=== PATIENT | female | born 1950 | race Caucasian/White ===

== ENCOUNTER → 2017-02-23 | Outpatient (CLI) | payer OTHER ==
--- NOTE | 2017-02-23 15:01 | RADIOLOGY REPORT (SQ) ---
EXAM DESCRIPTION: MRI LT LOWER JOINT WITHOUT COMPLETED DATE/TIME: 02/23/2017 12:00 pm REASON FOR STUDY: PAIN IN LEFT HIP (M25.552) M25.552 PAIN IN LEFT HIP R10.2 PELVIC AND PERINEAL PA IN COMPARISON: None. TECHNIQUE: Lefth[employer] images acquired and stored on PACS. Multiplanar images to include fat sensitive s equences as T1, fluid sensitive sequences as T2/STIR and gradient echo sequences. Large FOV fat and f luid sensitive sequences include pelvis and opposite hip. LIMITATIONS: None. FINDINGS: BONE CORTEX AND MARROW: No generalized marrow replacement. No occult fracture. No worriso me bone lesions. TARGETED HIP: FEMORAL HEAD: No evidence of AVN. Small osteophytes. ACETABULUM: Mid small osteophytes. Mild subchondral cyst formation right acetabulum. No effusion. LABRUM: Degenerative changes. No obvious acute labral tear. TROCHANTER: No trochanteric bursal effusion. No edema/fluid at the insertions of the gluteus medius and gluteus minimus. OPPOSITE HIP: Limited evaluation. No worrisome bone lesions. No significant effusion. PELVIS, LOWER LUMBAR SPINE, SACROILIAC JOINTS: PELVIS : No insufficiency/stress fractures. No significant degenerative changes. Sacroiliac joints normal. L SPINE: Mild spondylosis. MUSCLES AND SOFT TISSUES: Adductors and piriformis normal. Abductors and greater trochanteric bursa n ormal without edema or fluid. Iliopsoas bursa without fluid. Hamstring attachments without edema or t ear. PELVIC SOFT TISSUES: No masses or adenopathy. SCIATIC NERVE: Identified, without masses or abnormal signal. OTHER: No other significant finding. IMPRESSION: Mild degenerative changes. No acute findings. TECHNICAL DOCUMENTATION: JOB ID: [id number] [employer]- All Rights Reserved
--- NOTE | 2017-02-23 15:18 | RADIOLOGY REPORT (SQ) ---
EXAM DESCRIPTION: MRI PELVIS COMBO COMPLETED DATE/TIME: 02/23/2017 12:01 pm REASON FOR STUDY: PELVIC AND PERINEAL PAIN (R10.2) M25.552 PAIN IN LEFT HIP R10.2 PELVIC AND PERIN EAL PAIN COMPARISON: None. TECHNIQUE: Multiplanar multisequence imaging performed without and with contrast including axial, sa gittal and coronal T2, axial T, axial gradient fat sat T1, axial, sagittal and coronal fat sat T2 pos t contrast. CONTRAST TYPE AND DOSE: 10 mL Prohance. RENAL FUNCTION: GFR > 60. LIMITATIONS: Motion. FINDINGS: BLADDER AND URETHRA: No focal bladder wall thickening or nodularity. Smooth mucosa. The urethra has smooth contour with no focal asymmetry. No abnormal enhancement. No focal lesions. PELVIC SOFT TISSUES: Normal. No masses. UTERUS: Normal size. No masses. Junctional zone normal. RIGHT OVARY: Normal size. No masses. LEFT OVARY: Normal size. No masses. FREE FLUID: None. PELVIC SKELETAL STRUCTURES: Healed fracture left inferior pubic ramus. EXTRA PELVIS SOFT TISSUES: No masses. OTHER: No other significant finding. IMPRESSION: No acute findings. TECHNICAL DOCUMENTATION: JOB ID: [id number] [employer]- All Rights Reserved
== END ==
LOC: RAD 10:20
PROVIDERS: ATTEND Internal Medicine
DX: M25.552 Pain in left hip (principal); R10.2 Pelvic and perineal pain
CPT/HCPCS: 82565; 73721; 72197; A9576

== ENCOUNTER → 2018-12-03 | Outpatient (CLI) | payer MEDICARE, OTHER ==
--- NOTE | 2018-12-03 12:59 | RADIOLOGY REPORT (SQ) ---
EXAM DESCRIPTION: MRI LUMBAR SPINE WITHOUT COMPLETED DATE/TIME: 12/03/2018 11:49 am REASON FOR STUDY: LESION OF SCIATIC NERVE AND OTHER INTERV G57.01 LESION OF SCIATIC NERVE, RIGHT LO WER LIMB M51.36 OTHER INTERVERTEBRAL DISC DEGENERATION, LUMBAR REGION COMPARISON: CT angio chest 08/29/2014 MRI lumbar spine 07/28/2014 TECHNIQUE: Sagittal and Axial imaging includes T1, T2, STIR and gradient echo sequences. Coronal T2/ HASTE imaging. LIMITATIONS: None. FINDINGS: VISUALIZED UPPER ABDOMEN: There is a spontaneous left splenorenal shunt with multiple veno us collaterals in the left retroperitoneum. This unchanged from CT chest 08/29/2014 and lumbar spine M RI 07/28/2014 SEGMENTATION: No transitional anatomy. The lowest well-developed disc space is labeled L5-S1. ALIGNMENT: Very mild anterolisthesis of L4 over L5 VERTEBRAE: Intact. BONE MARROW: Normal. No marrow replacement or reactive changes. DISC SIGNAL: Diffuse decreased T2 weighted intervertebral disc signal POSTERIOR ELEMENTS: Generally intact. No pars defect evident. HARDWARE: None in the spine. CORD AND CONUS: Normal in size and signal intensity. Conus at the L1 level. SOFT TISSUES: No aortic aneurysm seen. No bulky retroperitoneal adenopathy or mass. No paraspinal mas s or fluid. T12-L1: At the upper edge of the field of view. No central or foraminal stenosis. L1-L2: Mild bilateral facet hypertrophy. No central or foraminal stenosis. L2-L3: Minimal posterior disc bulging, moderate bilateral facet hypertrophy. No significant central or foraminal stenosis. L3-L4: Minimal posterior disc bulging, moderate bilateral facet and ligament hypertrophy. No signifi cant central or foraminal stenosis L4-L5: Grade 1 anterolisthesis of L4 over L5 is present, related to bilateral facet arthropathy. The re is mild diffuse posterior disc bulging. Borderline central canal narrowing with flattening of the thecal sac into a triangular shape best shown on axial T2 image 25. Mild bilateral inferior foramin al narrowing without exit L4 nerve root impingement. L5-S1: Mild posterior disc bulging is present with a superimposed left paracentral disc herniation. This flattens the thecal sac near the takeoff of the left S1 nerve root in the lateral recess, best s hown on axial T2 image 31, axial T1 weighted images 19 and 20, and sagittal images 8-11. Please note that the left L5 nerve root exits above this disc protrusion/ herniation through a mildly narrowed n eural foramen from facet and uncovertebral hypertrophy. No central stenosis or significant right foraminal narrowing. SACRUM: Visualized upper sacrum intact. OTHER: No other significant findings. IMPRESSION: Left paracentral disc herniation at the L5-S1 level, with extruded material flattening t he thecal sac near the takeoff of the left proximal S1 nerve root from the thecal sac TECHNICAL DOCUMENTATION: JOB ID: [id number] [employer]- All Rights Reserved Reading location - IP/workstation name: [email or web address]
== END ==
LOC: RAD 10:55
PROVIDERS: ATTEND Orthopaedic Surgery
DX: G57.01 Lesion of sciatic nerve, right lower limb (principal); M51.36 Other intervertebral disc degeneration, lumbar region
CPT/HCPCS: 72148

== ENCOUNTER 2019-11-28 10:31 | Emergency (ER) | payer MEDICARE, OTHER ==
[2019-11-28] MEDS ORDERED: AMOXICILLIN TR/POT CLAVULANATE 875-125 MG TAB PO ONE (10:46)
[2019-11-28] MEDS ORDERED: DIPH/PERTUSS(ACELL)/TETANUS VAC/PF 0.5 ML SYR (>=10YO) IM ONE (10:46)
--- NOTE | 2019-11-28 10:47 | ER Document Report ---
ED Medical Screen (RME) - General Chief Complaint: Animal Bite Stated Complaint: ANIMAL BITE Time Seen by Provider: 11/28/19 10:43 Primary Care Provider: JILL ALEXANDER MD [Primary Care Provider] - Follow up as needed Mode of Arrival: Ambulatory Information source: Patient Notes: 69-year-old female presents to ED for complaint of raccoon bite to her right thumb. She states it was about 10 AM. 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 She went to get the raccoon out and it was not that and it bit her. She states she is not sure if her tetanus shot so she will be getting a tetanus immunization she will be getting Augmentin and her finger cleaned. States animal control met her at the hospital and picked up the raccoon after her's shot it. She states she is vapes does not smoke cigarettes she rarely drinks and does not use any illicit drugs. I have greeted and performed a rapid initial assessment of this patient. A comprehensive ED assessment and evaluation of the patient, analysis of test results and completion of medical decision making process will be conducted by an additional ED providers. TRAVEL OUTSIDE OF THE [place] IN LAST 30 DAYS: No - Related Data Allergies/Adverse Reactions: No Known Allergies Allergy (Verified 08/29/14 20:42) Past Medical History Pulmonary Medical History: Denies: Hx Tuberculosis GI Medical History: Reports: Hx Gastroesophageal Reflux Disease Psychiatric Medical History: Reports: Hx Depression Traumatic Medical History: Reports: Hx Fractures - Pelvic Past Surgical History: Denies: Hx Pacemaker - Immunizations Hx Diphtheria, Pertussis, Tetanus Vaccination: Yes Physical Exam - Vital signs Vitals: Temp Pulse Resp BP Pulse Ox 98.5 F 83 18 145/73 H 100 11/28/19 10:36 11/28/19 10:36 11/28/19 10:36 11/28/19 10:36 11/28/19 10:36 Course - Vital Signs Vital signs: Temp Pulse Resp BP Pulse Ox 98.5 F 83 18 145/73 H 100 11/28/19 10:36 11/28/19 10:36 11/28/19 10:36 11/28/19 10:36 11/28/19 10:36 Doctor's Discharge - Discharge Referrals: JILL ALEXANDER MD [Primary Care Provider] - Follow up as needed
--- NOTE | 2019-11-28 11:01 | ER Document Report ---
ED Animal Bite - General Chief Complaint: Animal Bite Stated Complaint: ANIMAL BITE Time Seen by Provider: 11/28/19 10:43 Primary Care Provider: JILL ALEXANDER MD [ASSOCIATE] - Follow up as needed Mode of Arrival: Ambulatory Notes: CHIEF COMPLAINT: Raccoon bite right thumb HPI: 69-year-old female presenting for evaluation of her raccoon bite to the right thumb. Patient states her had trapped it and she thought it was and went to move it and it was not and it bit her. States her did shoot it and animal control did come out and take possession of the raccoon for testing for rabies. Patient did sustain a laceration to the thumb and is presenting for evaluation of same. States she did clean and irrigated at home ROS: See HPI - all other systems were reviewed and are otherwise negative Constitutional: no fever Integumentary: + Laceration Allergy: no hives Musculoskeletal: + extremity pain or swelling Neurological: no numbness/tingling, no weakness MEDICATIONS: I agree with the patient medications as charted by the RN. ALLERGIES: I agree with the allergies as charted by the RN. PAST MEDICAL HISTORY/PAST SURGICAL HISTORY: Reviewed and agree as charted by RN. SOCIAL HISTORY: Reviewed and agree as charted by RN. FAMILY HISTORY: No significant familial comorbid conditions directly related to patient complaint EXAM: Reviewed vital signs as charted by RN. CONSTITUTIONAL: Alert and oriented and responds appropriately to questions. Well-appearing; well-nourished mild distress secondary to discomfort HEAD: Normocephalic; atraumatic EYES: PERRL; Conjunctivae clear, sclerae non-icteric ENT: normal nose; no rhinorrhea; moist mucous membranes NECK: Supple without meningismus CARD: symmetric distal pulses RESP: Normal chest excursion without splinting or tachypnea ABD/GI: non-distended BACK: The back appears normal EXT: Normal ROM in all joints; no cyanosis, no effusions, no edema. There is a 1 cm laceration vertically across the proximal phalange of the right thumb. No visible tendon injury, laceration is proximal to the DIP joint space region. Patient is able to fully flex and extend the thumb without difficulty at the DIP joint space region SKIN: Normal color for age and race; warm; dry; good turgor NEURO: Moves all extremities equally; Motor and sensory function intact PSYCH: The patient's mood and manner are appropriate. Grooming and personal hygiene are appropriate. MDM: 69-year-old female with a raccoon bite to the right thumb, 1 cm laceration to the thumb. Full flexion extension and intact sensation. Will have nursing copiously irrigate the wound area and dress the wound area will not close given the infection risk and this was discussed with the patient. We will make sure she has referral to orthopedics for follow-up for wound check. [facility] already has the raccoon patient has 10 days to hear back from [facility] about whether she will need rabies vaccinations and she is aware of this TRAVEL OUTSIDE OF THE [place] IN LAST 30 DAYS: No - Related Data Allergies/Adverse Reactions: No Known Allergies Allergy (Verified 08/29/14 20:42) Past Medical History - General Information source: Patient - Social History Smoking Status: Never Smoker Chew tobacco use (# tins/day): No Frequency of alcohol use: Occasional Family History: Reviewed & Not Pertinent Patient has homicidal ideation: No Pulmonary Medical History: Denies: Hx Tuberculosis GI Medical History: Reports: Hx Gastroesophageal Reflux Disease Psychiatric Medical History: Reports: Hx Depression Traumatic Medical History: Reports: Hx Fractures - Pelvic Past Surgical History: Denies: Hx Pacemaker - Immunizations Hx Diphtheria, Pertussis, Tetanus Vaccination: Yes Physical Exam - Vital signs Vitals: Temp Pulse Resp BP Pulse Ox 98.5 F 83 18 145/73 H 100 11/28/19 10:36 11/28/19 10:36 11/28/19 10:36 11/28/19 10:36 11/28/19 10:36 Course - Re-evaluation Re-evalutation: 11/28/19 11:36 X-ray does not show evidence of foreign body or fracture. Will discharge home with return instructions - Vital Signs Vital signs: Temp Pulse Resp BP Pulse Ox 98.5 F 83 18 145/73 H 100 11/28/19 10:44 11/28/19 10:36 11/28/19 10:36 11/28/19 10:36 11/28/19 10:36 Discharge - Discharge Clinical Impression: Animal bite of finger Qualifiers: Encounter type: initial encounter Qualified Code(s): S61.259A - Open bite of unspecified finger without damage to nail, initial encounter Laceration of thumb, right, complicated Qualifiers: Encounter type: initial encounter Qualified Code(s): S61.011A - Laceration without foreign body of right thumb without damage to nail, initial encounter Condition: Stable Disposition: HOME, SELF-CARE Additional Instructions: Clean the wound area twice daily applying a small amount of antibiotic ointment until healed. Take the antibiotics as prescribed. Follow-up with orthopedics for wound check in 2 to 3 days call for appointment. Return for any significant swelling or redness to the thumb. Follow-up with animal control regarding the rabies status of the animal which will dictate whether you need to come back in for the immunoglobulin and rabies vaccination Prescriptions: Amoxicillin/Potassium Clav [Augmentin 875-125 Tablet] 1 tab PO NOW #14 tablet Referrals: JILL ALEXANDER MD [ASSOCIATE] - Follow up as needed
--- NOTE | 2019-11-28 11:28 | RADIOLOGY REPORT (SQ) ---
EXAM DESCRIPTION: FINGER RIGHT IMAGES COMPLETED DATE/TIME: 11/28/2019 11:17 am REASON FOR STUDY: right thumb racoon bite COMPARISON: None. NUMBER OF VIEWS: Three views. TECHNIQUE: AP, lateral, and oblique images acquired of the right thumb. LIMITATIONS: None. FINDINGS: MINERALIZATION: Normal. BONES: No acute fracture or dislocation. SOFT TISSUES: No soft tissue swelling or radiopaque foreign body. OTHER: Osteoarthrosis of several IP joints. IMPRESSION: No acute osseous abnormality or radiopaque foreign body. COMMENT: SITE OF TRAUMA/COMPLAINT MARKED/STAMP COMPLETED: YES. TECHNICAL DOCUMENTATION: JOB ID: [id number] 2010 [employer]- All Rights Reserved Reading location - IP/workstation name: [email or web address]
[2019-11-28 12:48] VITALS: BP 129/70
== END 2019-11-28 12:07 | disposition home or self-care (01) ==
LOC: ER 10:31
DX: S61.051A Open bite of right thumb without damage to nail, initial encounter (principal); S61.011A Laceration without foreign body of right thumb without damage to nail, initial encounter; W55.51XA Bitten by raccoon, initial encounter; Z23 Encounter for immunization
CPT/HCPCS: 99283; 90471; 73140; 90715; J3490

== ENCOUNTER 2020-07-27 12:06 | Emergency (ER) | payer MEDICARE, OTHER ==
[2020-07-27] MEDS ORDERED: ONDANSETRON HCL INJ/PF 4 MG/2 ML SDV IV ONE (13:08)
--- NOTE | 2020-07-27 13:11 | ER Document Report ---
ED Medical Screen (RME) - General Chief Complaint: Fever Stated Complaint: FEVER,CHILLS, BODYACHES Time Seen by Provider: 07/27/20 13:07 Primary Care Provider: RADHA ANDRADE MD [Primary Care Provider] - Follow up as needed Notes: Patient presents complaining of nausea diarrhea that started yesterday with some lower abdominal pain. Patient reports low-grade fever at home. Patient denies any cough. Patient does report exposure to someone who did test positive for Covid. I have greeted and performed a rapid initial assessment of this patient. A comprehensive ED assessment and evaluation of the patient, analysis of test results and completion of the medical decision making process will be conducted by additional ED providers. TRAVEL OUTSIDE OF THE [place] IN LAST 30 DAYS: No - Related Data Allergies/Adverse Reactions: No Known Allergies Allergy (Verified 08/29/14 20:42) Past Medical History Pulmonary Medical History: Denies: Hx Tuberculosis GI Medical History: Reports: Hx Gastroesophageal Reflux Disease Psychiatric Medical History: Reports: Hx Depression Traumatic Medical History: Reports: Hx Fractures - Pelvic Past Surgical History: Denies: Hx Pacemaker - Immunizations Hx Diphtheria, Pertussis, Tetanus Vaccination: Yes Physical Exam - Vital signs Vitals: Temp Pulse Resp BP Pulse Ox 97.7 F 74 20 197/87 H 98 07/27/20 12:12 07/27/20 12:12 07/27/20 12:12 07/27/20 12:12 07/27/20 12:12 - General General appearance: Alert In distress: None - Abdominal Tenderness: Tender - Generalized lower abdomen Course - Vital Signs Vital signs: Temp Pulse Resp BP Pulse Ox 97.7 F 74 20 197/87 H 98 07/27/20 12:12 07/27/20 12:12 07/27/20 12:12 07/27/20 12:12 07/27/20 12:12 Doctor's Discharge - Discharge Referrals: RADHA ANDRADE MD [Primary Care Provider] - Follow up as needed
[2020-07-27 14:09] LABS: ABSOLUTE EOSINOPHILS # (AUTO) 0.1 10^3/uL (0.0-0.6); ABSOLUTE LYMPHOCYTES (AUTO) 1.7 10^3/uL (0.5-4.7); ABSOLUTE MONOCYTES (AUTO) 0.3 10^3/uL (0.1-1.4); ABSOLUTE NEUT (AUTO) 3.9 10^3/uL (1.7-8.2); BASOPHILS % (AUTO) 0.8 % (0-2); EOSINOPHILS % (AUTO) 0.8 % (0-6); HEMATOCRIT 41.6 % (36.0-47.0); HEMOGLOBIN 14.3 g/dL (12.0-15.5); LYMPHOCYTES % (AUTO) 28.8 % (13-45); MEAN CORPUSCULAR HGB CONC 34.3 g/dL (32.0-36.0); MEAN CORPUSCULAR VOLUME 94 fl (80-97); MONOCYTES % (AUTO) 5.6 % (3-13); PLATELET COUNT 244 10^3/uL (150-450); RED BLOOD COUNT 4.45 10^6/uL (3.72-5.28); RED CELL DISTRIBUTION WIDTH 13.6 % (11.5-14.0); TOTAL CELLS COUNTED % (AUTO) 100 %; WHITE BLOOD COUNT 6.1 10^3/uL (4.0-10.5)
[2020-07-27 14:11] LABS: APPEARANCE,URINE CLEAR; BILIRUBIN,URINE NEGATIVE (NEGATIVE); COLOR,URINE STRAW; GLUCOSE, URINE NEGATIVE (NEGATIVE); KETONES,URINE NEGATIVE (NEGATIVE); LEUKOCYTE ESTERASE,URINE TRACE (NEGATIVE); NITRITE,URINE NEGATIVE (NEGATIVE); PROTEIN,URINE NEGATIVE (NEGATIVE); URINE SPECIFIC GRAVITY 1.009; UROBILINOGEN,URINE NEGATIVE mg/dL (<2.0)
--- NOTE | 2020-07-27 14:24 | ER Document Report ---
ED Fever - General Chief Complaint: Fever Stated Complaint: FEVER,CHILLS, BODYACHES Time Seen by Provider: 07/27/20 13:07 Primary Care Provider: RADHA ANDRADE MD [Primary Care Provider] - Follow up as needed Mode of Arrival: Ambulatory Information source: Patient Notes: 07/27/20 14:19 - ED Nursing Note by [facility] Num: [id number] : 1950 Patient Age: 69 Pt states that yesterday she developed nausea, low grade fever, intermittent chills, achy shoulders, mild headache to the right temporal, and increased bowel movements. Pt denies any diarrhea. Pt states that she has not been tested for COVID and has not had any exposure. Pt denies any other pain or symptoms. Pt breathing e/u. NAd noted. ED Medical Screen (Mauro Notes) - General Chief Complaint: Fever Stated Complaint: FEVER,CHILLS, BODYACHES Time Seen by Provider: 07/27/20 13:07 Primary Care Provider: RADHA ANDRADE MD [Primary Care Provider] - Follow up as needed Notes: Patient presents complaining of nausea diarrhea that started yesterday with some lower abdominal pain. Patient reports low-grade fever at home. Patient denies any cough. Patient does report exposure to someone who did test positive for Covid. My Notes 69 year old female with chief complaint of myalgias dorsal neck pain upper back pain rhinorrhea mild headache and semiformed stools. Patient was exposed to 2 people that are now hospitalized. They are positive for Covid. She is afraid that her might catch this because he has kidney disease and multiple other comorbidities. Patient denies any dysuria does admit to some mild fever denies any photophobia eye pruritus oral lesions strep throat sinus disease nuchal rigidity chest pain productive cough diarrhea. She denies any travel to foreign countries. She denies being exposed to the new strain of COVID-19 from [place]. TRAVEL OUTSIDE OF THE [place] IN LAST 30 DAYS: No - HPI Onset: Yesterday Onset/Duration: Sudden, Persistent, Better Quality of pain: Achy Severity: Mild Pain Level: 1 Associated symptoms: Body/muscle aches, Fever. denies: Chest pain, Chills, Nonproductive cough, Productive cough, Diarrhea, Drooling, Headache, Hurts to breath, Nausea, Rhinnorhea Similar symptoms previously: No Recently seen / treated by doctor: No - Related Data Allergies/Adverse Reactions: No Known Allergies Allergy (Verified 07/27/20 14:21) Past Medical History - General Information source: Patient - Social History Smoking Status: Never Smoker Cigarette use (# per day): No Chew tobacco use (# tins/day): No Smoking Education Provided: No Frequency of alcohol use: None Drug Abuse: None Lives with: Family Family History: Reviewed & Not Pertinent Patient has suicidal ideation: No Patient has homicidal ideation: No - Past Medical History Cardiac Medical History: Reports: Hx Hypercholesterolemia Pulmonary Medical History: Denies: Hx Tuberculosis GI Medical History: Reports: Hx Gastroesophageal Reflux Disease Psychiatric Medical History: Reports: Hx Depression Traumatic Medical History: Reports: Hx Fractures - Pelvic Past Surgical History: Denies: Hx Pacemaker - Immunizations Hx Diphtheria, Pertussis, Tetanus Vaccination: Yes Review of Systems - Review of Systems Constitutional: See HPI, Fever EENT: No symptoms reported, See HPI, Nose congestion, Nose discharge Cardiovascular: No symptoms reported Respiratory: No symptoms reported Gastrointestinal: No symptoms reported Genitourinary: No symptoms reported Female Genitourinary: No symptoms reported Musculoskeletal: See HPI, Neck pain Skin: No symptoms reported Hematologic/Lymphatic: No symptoms reported Neurological/Psychological: No symptoms reported, See HPI, Weakness -: Yes All other systems reviewed and negative Physical Exam - Vital signs Vitals: Temp Pulse Resp BP Pulse Ox 97.7 F 74 20 197/87 H 98 07/27/20 12:12 07/27/20 12:12 07/27/20 12:12 07/27/20 12:12 07/27/20 12:12 Interpretation: Hypertensive - General General appearance: Appears well, Alert - HEENT Head: Normocephalic, Atraumatic Eyes: Normal Pupils: PERRL - Respiratory Respiratory status: No respiratory distress Chest status: Nontender Breath sounds: Normal Chest palpation: Normal - Cardiovascular Rhythm: Regular Heart sounds: Normal auscultation Murmur: No - Abdominal Inspection: Normal Distension: No distension Bowel sounds: Normal Tenderness: Nontender Organomegaly: No organomegaly - Rectal Hemorrhoids: Other - Deferred - Genitourinary Bimanuel exam: Other - Deferred - Back Back: Normal, Nontender - Extremities General upper extremity: Normal inspection, Nontender, Normal color, Normal ROM, Normal temperature General lower extremity: Normal inspection, Nontender, Normal color, Normal ROM, Normal temperature, Normal weight bearing. No: Alireza's sign - Neurological Neuro grossly intact: Yes Cognition: Normal Orientation: AAOx4 Salcha Coma Scale Eye Opening: Spontaneous Sal[place] Coma Scale Verbal: Oriented Antonio Coma Scale Motor: Obeys Commands Antonio Coma Scale Total: 15 Speech: Normal Motor strength normal: LUE, RUE, LLE, RLE Sensory: Normal - Psychological Associated symptoms: Normal affect, Normal mood - Skin Skin Temperature: Warm Skin Moisture: Dry Skin Color: Normal Course - Vital Signs Vital signs: Temp Pulse Resp BP Pulse Ox 97.7 F 74 20 197/87 H 98 07/27/20 12:12 07/27/20 12:12 07/27/20 12:12 07/27/20 12:12 07/27/20 12:12 - Laboratory Results Result Diagrams: 07/27/20 13:20 07/27/20 13:20 Laboratory Results Interpreted: 07/27/20 07/27/20 13:20 13:20 Carbon Dioxide 31 H Ur Leukocyte Esterase TRACE H Critical Laboratory Results Reviewed: Yes Attending or Supervising Physician who Reviewed Labs: PRIYANK BARRON JR - Radiology Results Critical Radiology Results Reviewed: No Critical Results Attending or Supervising Physician who Reviewed Radiology: PRIYANK BARRON JR Discharge - Discharge Clinical Impression: COVID-19 virus test result unknown Hypertension Qualifiers: Hypertension type: unspecified Qualified Code(s): I10 - Essential (primary) hypertension Condition: Stable Disposition: HOME, SELF-CARE Instructions: COVID-19 Guidance for Persons Under Investigation, Fever ([facility]) Additional Instructions: Follow-up with personal doctor this week; return to ER for true emergencies; take medicines as directed ; encourage fluids; try to take her temperature on a daily basis and follow-up with your doctor if you develop a cough as well. May take [id number] vitamin D with calcium with your meals and also melatonin at nighttime. Prescriptions: Dexamethasone [Decadron 4 Mg Tablet] 4 mg PO DAILY 3 Days #3 tablet Famotidine [Pepcid 20 mg Tablet] 20 mg PO BID #12 tablet Ivermectin [Stromectol 3 mg Tablet] 3 mg PO DAILY #3 tablet Azithromycin [Zithromax 250 mg Tablet] 250 mg PO ASDIR PRN #6 tablet PRN Reason: Referrals: RADHA ANDRADE MD [Primary Care Provider] - Follow up as needed
[2020-07-27 14:28] LABS: ALBUMIN 4.5 g/dL (3.5-5.0); ALKALINE PHOSPHATASE 83 U/L (38-126); ANION GAP 5 (5-19); ASPARTATE AMINO TRANSFERASE 33 U/L (14-36); BILIRUBIN,DIRECT 0.2 mg/dL (0.0-0.4); BILIRUBIN,TOTAL 0.6 mg/dL (0.2-1.3); BLOOD UREA NITROGEN 14 mg/dL (7-20); CALCIUM 9.8 mg/dL (8.4-10.2); CARBON DIOXIDE 31 mmol/L (22-30); CHLORIDE 102 mmol/L (98-107); GLUCOSE 109 mg/dL (75-110); POTASSIUM 4.6 mmol/L (3.6-5.0); TOTAL PROTEIN 7.7 g/dL (6.3-8.2)
--- NOTE | 2020-07-27 15:14 | RADIOLOGY REPORT (SQ) ---
EXAM DESCRIPTION: ACUTE ABDOMEN SERIES IMAGES COMPLETED DATE/TIME: 07/27/2020 2:49 pm REASON FOR STUDY: fever /exposed to covid COMPARISON: None. NUMBER OF VIEWS: Three views. TECHNIQUE: Frontal chest, supine abdomen and upright/decubitus abdomen radiographic images acquired. LIMITATIONS: None. FINDINGS: CHEST: Lungs clear of infiltrates. FREE AIR: None. No abnormal gas collections. BOWEL GAS PATTERN: Nonobstructive pattern. No dilated loops or air fluid levels. CALCIFICATIONS: No suspicious calcifications. HARDWARE: None in the abdomen. SOFT TISSUES: No gross mass or suggestion of organomegaly. BONES: No acute fracture. Degenerative changes in the lower lumbar spine. No worrisome bone lesions . OTHER: No other significant finding. IMPRESSION: NO RADIOGRAPHIC EVIDENCE FOR ACUTE ABDOMINAL DISEASE. TECHNICAL DOCUMENTATION: JOB ID: [id number] 2010 [employer]- All Rights Reserved Reading location - IP/workstation name: [email or web address]
[2020-07-27 16:15] VITALS: BP 140/80
== END 2020-07-27 16:15 | disposition home or self-care (01) ==
LOC: ER 12:06
DX: R50.9 Fever, unspecified (principal); M79.10 Myalgia, unspecified site; R11.0 Nausea; R51.9 Headache, unspecified; Z20.822 Contact with and (suspected) exposure to COVID-19; I10 Essential (primary) hypertension
CPT/HCPCS: 99284; 36415; 83690; 85025; 80053; 81001; 74022; U0003; C9803; 87635